=== PATIENT | female | born 1960 | race Caucasian/White ===

== ENCOUNTER 2022-04-03 14:32 | Outpatient (CLI) | payer MEDICARE, MEDICAID | END 2022-04-03 23:59 | disposition home or self-care (01) | LOC: RAD 14:32 → EDBD 15:30 → RAD 23:59 | PROVIDERS: ATTEND Family Medicine | DX: R13.14 Dysphagia, pharyngoesophageal phase (principal); R49.0 Dysphonia; K21.9 Gastro-esophageal reflux disease without esophagitis | CPT/HCPCS: 74230 ==